=== PATIENT | female | born 1970 | race Caucasian/White ===

== ENCOUNTER 2017-06-22 12:25 | Outpatient (CLI) | payer OTHER ==
[2017-06-22 13:09] LABS: MEAN CORPUSCULAR HEMOGLOBIN 31.4 pg (28.0-34.0); MEAN CORPUSCULAR VOLUME 92.6 fl (80.0-100.0)
[2017-06-22 13:17] LABS: eGFR (African) > 60; eGFR (Non-African) > 60
== END 2017-06-22 12:27 ==
LOC: LAB 12:25
PROVIDERS: ATTEND Family Medicine
DX: Z00.00 Encounter for general adult medical examination without abnormal findings (principal); N95.1 Menopausal and female climacteric states; E55.9 Vitamin D deficiency, unspecified
CPT/HCPCS: 36415; 80053; 80061; 82306; 83001; 83036; 85027